=== PATIENT | male | born 1970 | race Two or more races ===

== ENCOUNTER 2021-04-20 08:30 | Outpatient (CLI) | payer OTHER | END 2021-04-20 08:31 | disposition home or self-care (01) | LOC: LAB 08:30 | PROVIDERS: ATTEND Obstetrics & Gynecology | DX: Z20.818 Contact with and (suspected) exposure to other bacterial communicable diseases (principal); Z20.828 Contact with and (suspected) exposure to other viral communicable diseases ==

== ENCOUNTER 2021-04-27 14:18 | Outpatient (CLI) | payer OTHER | END 2021-04-27 15:00 | disposition home or self-care (01) | LOC: LAB 14:18 | DX: R05 Cough (principal); R06.02 Shortness of breath; Z03.818 Encounter for observation for suspected exposure to other biological agents ruled out ==